=== PATIENT | male | born 1985 | race African-American/Black ===

== ENCOUNTER 2017-11-17 10:10 | Emergency (ER) | payer OTHER, MEDICAID ==
[~2017-11-17] VITALS: Ht 180.3 cm; Wt 83.5 kg
[~2017-11-17 10:10] MED LIST: DIPH38TA
[2017-11-17 10:18] VITALS: BP 96/46
[2017-11-17] MEDS ORDERED: cefTRIAXone SOD 1,000 MG VL IM ONE (10:45)
[2017-11-17] MEDS ORDERED: ACETAMINOPHEN 500 MG TAB PO ONE (10:45)
== END 2017-11-17 11:15 | disposition home or self-care (01) ==
LOC: ER 10:10
DX: J02.9 Acute pharyngitis, unspecified (principal); I10 Essential (primary) hypertension; R13.10 Dysphagia, unspecified; Z88.1 Allergy status to other antibiotic agents; Z87.891 Personal history of nicotine dependence
CPT/HCPCS: 96372; 99283; J0696

== ENCOUNTER 2018-07-17 00:49 | Emergency (ER) | payer OTHER, MEDICAID ==
[~2018-07-17] VITALS: Ht 180.3 cm; Wt 81.6 kg
[2018-07-17] MEDS ORDERED: KETOROLAC TROMETH 60MG/2ML VIAL IM ONE (02:30)
[2018-07-17 04:25] VITALS: BP 135/65
== END 2018-07-17 05:02 | disposition home or self-care (01) ==
LOC: ER 00:49
DX: S16.1XXA Strain of muscle, fascia and tendon at neck level, initial encounter (principal); S39.012A Strain of muscle, fascia and tendon of lower back, initial encounter; I10 Essential (primary) hypertension; Z87.891 Personal history of nicotine dependence; Z88.1 Allergy status to other antibiotic agents; V49.49XA Driver injured in collision with other motor vehicles in traffic accident, initial encounter; Y93.89 Activity, other specified; Y99.8 Other external cause status; Y92.410 Unspecified street and highway as the place of occurrence of the external cause
CPT/HCPCS: 72040; 72100; 96372; 99283; J1885

== ENCOUNTER 2018-10-11 11:21 | Emergency (ER) | payer OTHER, MEDICAID ==
[~2018-10-11] VITALS: Ht 152.4 cm; Wt 81.6 kg
[2018-10-11 12:24] LABS: Urine Bacteria NONE SEEN /hpf (None Seen); Urine Blood Negative /uL (Negative); Urine Specific Gravity 1.011 (1.001-1.035); Urine WBC 1 /hpf (0 - 3)
[2018-10-11 14:01] LABS: Basophils # (auto) 0 uL; Basophils % (auto) 0.6 % (0.0-2.0); Eosinophils # (auto) 0.1 uL; Eosinophils % (auto) 2.6 % (0.0-7.0); Hematocrit 42.9 % (41.0-53.0); Hemoglobin 14.5 g/dL (13.5-17.5); Lymphocytes # (auto) 1.1 uL; Lymphocytes % (auto) 23.8 % (10.0-50.0); Mean Corpuscular Hemoglobin 30.2 pg (28.0-32.0); Mean Corpuscular Hgb Conc. 33.8 g/dL (32.0-36.0); Mean Corpuscular Volume 89.3 fL (80.0-100.0); Monocytes # (auto) 0.5 uL; Monocytes % (auto) 10.3 % (0.0-12.0); Neutrophils # (auto) 2.9 uL; Neutrophils % (auto) 62.7 % (37.0-80.0); Nucleated Red Blood Cells % 0.1 %; Platelet Count (auto) 235 10^3/uL (140-450); Red Blood Cells 4.81 10^6/uL (4.5-5.90); Red Cell Distribution Width 13.7 % (11.8-14.3); White Blood Cell 4.6 10^3/uL (4.4-10.8)
[2018-10-11 14:12] LABS: Calcium 9.1 mg/dL (8.5-10.1); Potassium 3.7 mmol/L (3.5-5.1)
[2018-10-11 14:15] LABS: BUN/Creatinine Ratio 11.8
[2018-10-11 14:17] LABS: Bilirubin, Total 0.4 mg/dL (0.2-1.0); Total Protein 8.1 g/dL (6.4-8.2)
[2018-10-11 15:15] VITALS: BP 140/81
== END 2018-10-11 15:16 | disposition home or self-care (01) ==
LOC: ER 11:21
DX: K64.9 Unspecified hemorrhoids (principal)
CPT/HCPCS: 36415; 80053; 81001; 85025

== ENCOUNTER 2019-08-24 08:39 | Emergency (ER) | payer MEDICAID, OTHER ==
[~2019-08-24] VITALS: Ht 180.3 cm; Wt 83.9 kg
[2019-08-24 08:47] VITALS: BP 121/78
== END 2019-08-24 09:30 | disposition home or self-care (01) ==
LOC: ER 08:39
DX: J06.9 Acute upper respiratory infection, unspecified (principal)

== ENCOUNTER 2023-08-19 10:14 | Emergency (ER) | payer MEDICAID, MEDICARE, OTHER ==
[~2023-08-19] VITALS: Ht 180.3 cm; Wt 79.2 kg
[2023-08-19 14:52] VITALS: BP 147/92; PULSE 82; RESP 18; TEMP 98.9; O2SAT 97
[2023-08-19] MEDS ORDERED: FEXO-42 PO (15:58)
[2023-08-19] MEDS ORDERED: DEXT60TA4 PO (15:58)
[2023-08-19] MEDS ORDERED: IBUP1TAB5 PO (15:58)
[2023-08-19] MEDS ORDERED: AZIT-43 PO (15:59)
== END 2023-08-19 16:06 | disposition home or self-care (01) ==
LOC: ER 10:14
DX: J01.10 Acute frontal sinusitis, unspecified (principal); J06.9 Acute upper respiratory infection, unspecified

== ENCOUNTER 2024-11-26 04:21 | Emergency (ER) | payer MEDICARE ==
[~2024-11-26] VITALS: Ht 180.3 cm; Wt 94.0 kg
[~2024-11-26 04:21] MED LIST changes: +AZIT-43 PO; +DEXT60TA4 PO; +FEXO-42 PO; +IBUP1TAB5 PO
--- NOTE | 2024-11-26 04:44 | ED.PDOC ---
Back pain HPI HPI Comments Pt presented to ED for neck pain radiating to right shoulder, arm, and hand x5 days. Pt stated numbness/tingling. Pt denied trauma/falls. Denies weakness Time Seen by MD: 04:24 Primary Care Provider: NONE Reviewed Notes: Allergies Allergies: Coded Allergies: Amoxicillin (Verified Allergy, Unknown, 04/13/10) Home Meds Active Scripts Methocarbamol (Methocarbamol) 750 Mg Tab, 750 MG PO HS PRN for 5 Days, #5 TAB Prov:MARIOEDDIE MAINTENANCE OPERATOR 11/26/24 Methylprednisolone (Medrol Dosepak) 4 Mg Osorio, 4 MG PO UD for 6 Days, #21 TAB UAD Prov:MARIOEDDIE MAINTENANCE OPERATOR 11/26/24 Azithromycin (Azithromycin) 250 Mg Tab, 250 MG PO DAILY MDD 500 for 5 Days, #6 TAB 0 Refills 2 TABLETS ORALLY ON DAY ONE, THEN 1 TABLET ORALLY DAILY FOR 4 DAYS Prov:CHERIE BUCIO ACCOUNTING FILE CLERK 08/19/23 Ibuprofen Micronized (Ibuprofen) 600 Mg Tab, 600 MG PO Q6HPRN PRN for 5 Days, #20 TAB Prov:CHERIE BUCIO ACCOUNTING FILE CLERK 08/19/23 Fexofenadine Hydrochloride (CLAUDETTE ALLERGY) 180 Mg Tab, 1 TAB PO DAILY, #14 TAB 2 Refills Prov:CHERIE BUCIO ACCOUNTING FILE CLERK 08/19/23 Dextromethorphan-Guaifenesin (Mucinex Dm Maximum Streng) 1 Tab Tab, 1 TAB PO BID PRN, #20 TAB 1 Refill Prov:CHERIE BUCIO NP 08/19/23 Reported Medications Diphenhydramine W/ Apap (Sleep (Excedrin Pm) Tab 04/13/10 Information Source: Patient Past Medical History PAST MEDICAL HISTORY: Denies Surgical History: Denies all surgeries Family History Family History: Unobtainable Social History Smoker: Non-Smoker Alcohol: Occasionally Drugs: Denies Drug Use Lives In: Home Constitutional: denies: chills, diaphoresis, fatigue, fever, malaise, sweats, weakness, others EENTM: denies: blurred vision, double vision, ear bleeding, ear discharge, ear drainage, ear pain, ear ringing, eye pain, eye redness, hearing loss, mouth pain, mouth swelling, nasal discharge, nose bleeding, nose congestion, nose pain, photophobia, tearing, throat pain, throat swelling, voice changes, others Respiratory: denies: cough, hemoptysis, orthopnea, SOB at rest, shortness of breath, SOB with excertion, stridor, wheezing, others Cardiovascular: denies: chest pain, dizzy spells, diaphoresis, Dyspnea on exertion, edema, irregular heart beat, left arm pain, lightheadedness, palpitations, PND, syncope, others Gastrointestinal: denies: abdomen distended, abdominal pain, blood streaked bowels, constipated, diarrhea, dysphagia, difficulty swallowing, hematemesis, melena, nausea, poor appetite, poor fluid intake, rectal bleeding, rectal pain, vomiting, others Genitourinary: denies: burning, dysuria, flank pain, frequency, hematuria, incontinence, penile discharge, penile sore, pain, testicle pain, testicle swelling, urgency, others Neurological: denies: dizziness, fainting, headache, left sided numbness, left sided weakness, numbness, paresthesia, pre-existing deficit, right sided numbness, right sided weakness, seizure, speech problems, tingling, tremors, weakness, others Musculoskeletal: reports: neck pain; denies: back pain, gout, joint pain, joint swelling, muscle pain, muscle stiffness, others Integumetry: denies: bruises, change in color, change in hair/nails, dryness, laceration, lesions, lumps, rash, wounds, others Allergic/Immunocompromised: denies: Difficulty Healing, Frequent Infections, Hives, Itching, others Hematologic/Lymphatic: denies: anemia, blood clots, easy bleeding, easy bruising, swollen glands, others Endocrine: denies: excessive hunger, excessive sweating, excessive thirst, excessive urination, flushing, intolerance to cold, intolerance to heat, unexplained weight gain, unexplained weight loss, others Psychiatric: denies: anxiety, bipolar disorder, depression, hopeless, panic disorder, schizophrenia, sleepless, suicidal, others Physical Exam General Appearance: No Apparent Distress, Normal HEENT: Pharynx Normal Neck: Limited Range of Motion, Other (Moderate tenderness palpated over C3 through C6 cervical spine no noted crepitus or step-offs no noted obvious visual external trauma. Strength sensory motion intact bilateral upper arms positive radial pulses.) Respiratory: Chest Non-Tender, Lungs Clear, No Accessory Muscle Use, No Res piratory Distress, Normal Breath Sounds Cardiovascular: No Edema, No JVD, No Murmur, No Gallop, Normal Peripheral Pulses, Regular Rate/Rhythm Breast Exam: Deferred Gastrointestinal: No Organomegaly, Non Tender, No Pulsatile Mass, Normal Bowel Sounds, Soft Genitalia: Deferred Pelvic: Deferred Rectal: Deferred Extremities: Normal capillary refill, Normal inspection, Normal range of motion, Non-tender, No pedal edema Musculoskeletal : Apperance: Normal Neurologic: Alert, 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 Was a procedure done?: No Back Pain Differential Dx Differential Diagnosis: Fracture, Musculoskeletal Pain X-Ray, Labs, Meds, VS Vital Signs Date Time Temp Pulse Resp B/P (MAP) Pulse Ox O2 Delivery O2 Flow Rate FiO2 11/26/24 05:12 98.3 53 16 119/89 (99) 96 98.3 11/26/24 05:12 53 16 96 Room Air 11/26/24 04:48 98.3 53 16 119/89 (99) 96 98.3 Current Medications Medications (Trade) Dose Ordered Sig/Percy Route Start Time Stop Time Status Last Admin Ketorolac Tromethamine (Toradol Injection) 60 mg ONCE ONCE IM 11/26/24 05:15 11/26/24 05:16 DC 11/26/24 05:34 Dexamethasone Sodium Phosphate (Decadron Injection) 10 mg ONCE ONCE IM 11/26/24 05:15 11/26/24 05:16 DC 11/26/24 05:33 X-Ray, Labs, Meds, VS Comment IMAGING: CT scan reviewed shows no acute fractures, osseous lesions, or subluxations. Likely neck strain. Patient given Toradol 60 mg IM and Decadron 10 mg IM. Improvement in pain and function requesting discharge at this time. Script trial of Medrol Dosepak and methocarbamol. Advised to take medications as prescribed side effects discussed. Advised follow up with his PCP 1-2 days as necessary symptoms persist consider physical therapy in further imaging such as MRI. We discussed ER return precautions patient indicated understanding agrees with discharge plan of care Time of 1ST Reevaluation: 05:10 Reevaluation 1ST: Unchanged Time of 2ND Reevaluation: 06:05 Reevaluation 2ND: Improved Patient Education/Counseling: Diagnosis, Treatment, Prognosis, Need For Follow Up Family Education/Counseling: No Family Present Departure 1 Departure Time of Disposition: 18:04 Impression: Primary Impression: Strain of muscle, fascia and tendon at neck level, initial encounter Disposition: HOME / SELF CARE / HOMELESS Condition: Stable e-Prescriptions Methocarbamol (Methocarbamol) 750 Mg Tab 750 MG PO HS PRN for 5 Days, #5 TAB Prov: EDDIE MARTIN 11/26/24 Methylprednisolone (Medrol Dosepak) 4 Mg Osorio 4 MG PO UD for 6 Days, #21 TAB UAD Prov: EDDIE MARTIN 11/26/24 Discharged With: Relative Critical Care Note Critical Care Time?: No Stability Stability form required: EDDIE Saldana Nov 26, 2024 04:44
[2024-11-26 05:12] VITALS: BP 119/89; PULSE 53; RESP 16; TEMP 98.3; O2SAT 96
[2024-11-26] MEDS: DexAMETHasone SOD PHOS 10MG/1ML VIAL INJ IM ONE (05:33)
[2024-11-26] MEDS: KETOROLAC TROMETH 60MG/2ML VIAL IM ONE (05:34)
[2024-11-26] MEDS ORDERED: METH4PAK PO (06:04)
[2024-11-26] MEDS ORDERED: METH-1182 PO (06:04)
--- NOTE | 2024-11-26 06:17 | DVH ---
EXAM: CT CERVICAL WITHOUT CONTRAST HISTORY: neck pain/radiculopathy COMPARISON: None CTDIvol 21.4 mGy, DLP 561.13 mGy*cm. TECHNIQUE: Multiple axial CT images of the spine were obtained using bone algorithm. Axial and coron al reformatting was done. Bone and soft tissue windows were reviewed. FINDINGS: There is loss of normal cervical curvature. No CT evidence of definite acute fracture, spinal disloca tion, or significant appearing acute subluxation is seen. The visualized paraspinal soft tissues are grossly unremarkable. Mild anterior osteophytosis is noted at the C4-C5 and C5-C6 levels. IMPRESSION: 1. No definite CT evidence of acute fracture or dislocation of the bony cervical spine. 2. Mild degenerative change of the cervical spine.
== END 2024-11-26 06:44 | disposition home or self-care (01) ==
LOC: ER 04:21
DX: S16.1XXA Strain of muscle, fascia and tendon at neck level, initial encounter (principal); Z88.0 Allergy status to penicillin; Z79.899 Other long term (current) drug therapy; X58.XXXA Exposure to other specified factors, initial encounter; Y93.89 Activity, other specified; Y92.89 Other specified places as the place of occurrence of the external cause; Y99.8 Other external cause status
CPT/HCPCS: 72125; 96372; 99285; J1100; J1885

== ENCOUNTER 2025-02-22 17:03 | Emergency (ER) | payer MEDICARE ==
[~2025-02-22] VITALS: Ht 180.3 cm; Wt 97.3 kg
[~2025-02-22 17:03] MED LIST changes: +METH4PAK PO
--- NOTE | 2025-02-22 18:15 | ED.PDOC ---
Back pain HPI HPI Comments This is a 39 year old male presenting to the ED with chief complaint of back pain. Patient reports that he has been experiencing right lower back pain for the past month. Patient relays that his pain worsens with bending and lifting at work, however, denies any injury that could have caused it. Patient states he has been having mild abdominal pain for the same amount of time, but it is barely noticeable to him. Patient denies any numbness, weakness, tingling, fall, injury, chest pain, SOB, or dysuria. Chief Complaint: Flank Pain Time Seen by MD: 18:11 Primary Care Provider: NONE Reviewed Notes: Nurses Notes, Medications, Allergies Allergies: Coded Allergies: Amoxicillin (Verified Allergy, Unknown, 04/13/10) Home Meds Active Scripts Methylprednisolone (Medrol Dosepak) 4 Mg Osorio, 4 MG PO UD for 6 Days, #21 TAB UAD Prov:MARIOJEVONK MARKETING TECHNOLOGY SPECIALIST 11/26/24 Azithromycin (Azithromycin) 250 Mg Tab, 250 MG PO DAILY MDD 500 for 5 Days, #6 TAB 0 Refills 2 TABLETS ORALLY ON DAY ONE, THEN 1 TABLET ORALLY DAILY FOR 4 DAYS Prov:CHERIE BUCIO NP 08/19/23 Ibuprofen Micronized (Ibuprofen) 600 Mg Tab, 600 MG PO Q6HPRN PRN for 5 Days, #20 TAB Prov:CHERIE BUCIO NP 08/19/23 Fexofenadine Hydrochloride (CLAUDETTE ALLERGY) 180 Mg Tab, 1 TAB PO DAILY, #14 TAB 2 Refills Prov:CHERIE BUCIO NP 08/19/23 Dextromethorphan-Guaifenesin (Mucinex Dm Maximum Streng) 1 Tab Tab, 1 TAB PO BID PRN, #20 TAB 1 Refill Prov:CHERIE BUCIO NP 08/19/23 Reported Medications Diphenhydramine W/ Apap (Sleep (Excedrin Pm) Tab 04/13/10 Information Source: Patient Mode of Arrival: Ambulatory Timing: Months Duration: Since onset Location of Back pain: (R) Lower back Severity: Moderate Prehospital treatment: None Quality: Aching Onset: Bending, Twisting Circumstance: Work Related History of: None Modifying Factors: Movement Past Medical History PAST MEDICAL HISTORY: Denies Surgical History: Denies all surgeries Family History Family History: Unobtainable Social History Smoker: Non-Smoker Alcohol: Occasionally Drugs: Denies Drug Use Lives In: Home Constitutional: denies: chills, diaphoresis, fatigue, fever, malaise, sweats, weakness, others EENTM: denies: blurred vision, double vision, ear bleeding, ear discharge, ear drainage, ear pain, ear ringing, eye pain, eye redness, hearing loss, mouth pain, mouth swelling, nasal discharge, nose bleeding, nose congestion, nose pain, photophobia, tearing, throat pain, throat swelling, voice changes, others Respiratory: denies: cough, hemoptysis, orthopnea, SOB at rest, shortness of breath, SOB with excertion, stridor, wheezing, others Cardiovascular: denies: chest pain, dizzy spells, diaphoresis, Dyspnea on exertion, edema, irregular heart beat, left arm pain, lightheadedness, palpitations, PND, syncope, others Gastrointestinal: reports: abdominal pain; denies: abdomen distended, blood streaked bowels, constipated, diarrhea, dysphagia, difficulty swallowing, hematemesis, melena, nausea, poor appetite, poor fluid intake, rectal bleeding, rectal pain, vomiting, others Genitourinary: denies: burning, dysuria, flank pain, frequency, hematuria, incontinence, penile discharge, penile sore, pain, testicle pain, testicle swelling, urgency, others Neurological: denies: dizziness, fainting, headache, left sided numbness, left sided weakness, numbness, paresthesia, pre-existing deficit, right sided numbness, right sided weakness, seizure, speech problems, tingling, tremors, weakness, others Musculoskeletal: reports: back pain; denies: gout, joint pain, joint swelling, muscle pain, muscle stiffness, neck pain, others Integumetry: denies: bruises, change in color, change in hair/nails, dryness, laceration, lesions, lumps, rash, wounds, others Allergic/Immunocompromised: denies: Difficulty Healing, Frequent Infections, Hives, Itching, others Hematologic/Lymphatic: denies: anemia, blood clots, easy bleeding, easy bruising, swollen glands, others Endocrine: denies: excessive hunger, excessive sweating, excessive thirst, excessive urination, flushing, intolerance to cold, intolerance to heat, unexplained weight gain, unexplained weight loss, others Psychiatric: denies: anxiety, bipolar disorder, depression, hopeless, panic disorder, schizophrenia, sleepless, suicidal, others All Other Systems: Reviewed and Negative Physical Exam General Appearance: No Apparent Distress, Normal HEENT: Normal ENT Inspection, Pharynx Normal, TMs Normal Neck: Full Range of Motion, Non-Tender, Normal, Normal Inspection Respiratory: Chest Non-Tender, Lungs Clear, No Accessory Muscle Use, No Respiratory Distress, Normal Breath Sounds Cardiovascular: No Edema, No JVD, No Murmur, No Gallop, Normal Peripheral Pulses, Regular Rate/Rhythm Breast Exam: Deferred Gastrointestinal: No Organomegaly, Non Tender, No Pulsatile Mass, Normal Bowel Sounds, Soft Genitalia: Deferred Pelvic: Deferred Rectal: Deferred Extremities: No calf tenderness, Normal capillary refill, Normal inspection, Normal range of motion, Non-tender, No pedal edema Musculoskeletal : Location: Right Extremity Location: Back Apperance: Tenderness (Right lumbar paraspinus tenderness) Neurologic: Alert, burn table operator II-XII nml as Tested, No Motor Deficits, Normal Affect, Normal Mood, No Sensory Deficits Cerebellar Function: Normal Reflexes: Normal Skin: Dry, Normal Color, Warm Lymphatic: No Adenopathy Was a procedure done? Was a procedure done?: No Back Pain Differential Dx Differential Diagnosis: Musculoskeletal Pain, Pyelonephritis, Urinary Tract Infection, Urolithiasis X-Ray, Labs, Meds, VS Vital Signs Date Time Temp Pulse Resp B/P (MAP) Pulse Ox O2 Delivery O2 Flow Rate FiO2 02/22/25 17:46 98.0 58 20 148/91 (110) 98 98.0 Lab Test 02/22/25 17:00 Range/Units Urine Color Yellow Yellow Urine Clarity Clear Clear Urine pH 6.0 5.0-9.0 Urine Specific [place] 1.030 1.001-1.035 Urine Protein Trace H Negative Urine Ketones Negative Negative Urine Blood Negative Negative /uL Urine Nitrite Negative Negative Urine Bilirubin Negative Negative Urine Urobilinogen Normal Negative mg/dL Urine Leukocyte Esterase Negative Negative /uL Urine RBC 1 0 - 3 /hpf Urine Microscopic WBC < 1 0-3 /HPF Urine Squamous Epithelial Cells None seen <5 /hpf Urine Bacteria None seen None Seen /hpf Urine Hyaline Casts Few 0 - 2 /lpf Urine Mucus Few None Seen Urine Glucose Normal Normal mg/dL X-Ray, Labs, Meds, VS Comment Imaging: X-rays and CT scans were reviewed and interpreted by this provider, imaging shows no fractures and no pathological disease. Pending radiology review. Laboratory: Labs reviewed and interpreted by this provider. No significant abnormalities noted. Patient has prior medical visits reviewed. Med reconciliation performed Vital signs reviewed Time of 1ST Reevaluation: 19:11 Reevaluation 1ST: Unchanged Patient Education/Counseling: Diagnosis, Treatment, Need For Follow Up (Follow up in the emergency department in the next 24-48 hours if symptoms worsen. It was advised to follow up with your primary care doctor in the next 3-4 days for further evaluation.) Family Education/Counseling: No Family Present SEPSIS Sepsis Screen Date sepsis recognized/suspect: Feb 22, 2025 Time Sepsis recognized/suspect: 1747 Recent Procedure: No On Antibiotic Therapy: No Respiratory Rate >20: No Heart Rate >90: No Temp<36 C (96.8 F) or >38.3 C: No SBP <90 or MAP <65 mmHG: No New Acute Mental Status Change: No Is the patient on CPAP, BIPAP,: No Physician Orders Lumbar Spine 3 View (02/22/25 18:13) Vital Signs Date Time Temp Pulse Resp B/P (MAP) Pulse Ox O2 Delivery O2 Flow Rate FiO2 02/22/25 17:46 98.0 58 20 148/91 (110) 98 98.0 Departure 1 Departure Time of Disposition: 19:49 Impression: Primary Impression: Strain of muscle, fascia and tendon at neck level, initial encounter Disposition: HOME / SELF CARE / HOMELESS Condition: Fair e-Prescriptions Cyclobenzaprine Hcl (Cyclobenzaprine Hcl) 5 Mg Tab 1 TAB PO TID PRN, #30 TAB Prov: ANNA CARCAMO 02/22/25 Ibuprofen Micronized (Ibuprofen) 800 Mg Tab 800 MG PO TID PRN, #30 TAB Prov: ANNA CARCAMO 02/22/25 Discharged With: Self Critical Care Note Critical Care Time?: No Stability Stability form required: No Heart Score Heart Score: Heart Score Response (Comments) Value History N/A 0 EKG N/A 0 Age N/A 0 Risk Factors N/A 0 Troponin N/A 0 Total 0 I personally scribed for ANNA CARCAMO ([email or web address]) on 02/22/25 at 18:15. Electronically submitted by Francisco Parks ([email or web address]). ANNA CARCAMO [facility] Feb 22, 2025 18:15
--- NOTE | 2025-02-22 18:43 | DVH ---
CLINICAL INDICATION: back pain TECHNIQUE: 2 radiographic views of the lumbar spine were obtained. Comparison: None FINDINGS/IMPRESSION: Normal bony alignment. No spondylolisthesis. No compressed vertebra. HS:Y
[2025-02-22 19:02] LABS: Urine Protein, UAD TRACE (Negative)
[2025-02-22] MEDS ORDERED: CYCL-837 PO (19:59)
[2025-02-22] MEDS ORDERED: IBUP-1455 PO (19:59)
[2025-02-22 20:33] VITALS: BP 154/96; PULSE 57; RESP 17; TEMP 97.8; O2SAT 97
== END 2025-02-22 20:36 | disposition home or self-care (01) ==
LOC: ER 17:03
DX: S16.1XXA Strain of muscle, fascia and tendon at neck level, initial encounter (principal); Z88.0 Allergy status to penicillin; X58.XXXA Exposure to other specified factors, initial encounter; Y93.89 Activity, other specified; Y92.89 Other specified places as the place of occurrence of the external cause; Y99.8 Other external cause status
CPT/HCPCS: 72100; 81001